=== PATIENT | female | born 1955 | race Caucasian/White ===

== ENCOUNTER 2017-11-18 13:39 | Emergency (ER) | payer OTHER ==
[~2017-11-18] VITALS: Ht 160 cm; Wt 76.7 kg
[2017-11-18 13:43] VITALS: BP 150/78; Ht 160 cm; Wt 76.7 kg
== END 2017-11-18 15:35 | disposition home or self-care (01) ==
LOC: ED 13:39
DX: S61.412A Laceration without foreign body of left hand, initial encounter (principal); E11.9 Type 2 diabetes mellitus without complications; F17.210 Nicotine dependence, cigarettes, uncomplicated; Z88.5 Allergy status to narcotic agent; W54.0XXA Bitten by dog, initial encounter; Y99.8 Other external cause status; Y93.89 Activity, other specified; Y92.89 Other specified places as the place of occurrence of the external cause
CPT/HCPCS: 90715; J2001

== ENCOUNTER 2017-11-27 10:44 | Emergency (ER) | payer OTHER ==
[~2017-11-27] VITALS: Ht 160 cm; Wt 76.7 kg
[2017-11-27 10:49] VITALS: BP 123/71; Ht 160 cm; Wt 76.7 kg
== END 2017-11-27 11:16 | disposition home or self-care (01) ==
LOC: ED 10:44
DX: S61.412D Laceration without foreign body of left hand, subsequent encounter (principal); X58.XXXD Exposure to other specified factors, subsequent encounter; Z88.5 Allergy status to narcotic agent

== ENCOUNTER 2019-08-21 13:18 | Emergency (ER) | payer OTHER ==
[~2019-08-21] VITALS: Ht 160 cm; Wt 81.9 kg
[2019-08-21 13:33] VITALS: BP 114/71; Ht 160 cm; Wt 81.9 kg
== END 2019-08-21 14:15 | disposition home or self-care (01) ==
LOC: ED 13:18
DX: N39.0 Urinary tract infection, site not specified (principal); E11.9 Type 2 diabetes mellitus without complications; Z90.710 Acquired absence of both cervix and uterus; Z88.5 Allergy status to narcotic agent

== ENCOUNTER 2019-08-24 14:16 | Emergency (ER) | payer OTHER ==
[~2019-08-24] VITALS: Ht 160 cm; Wt 82.6 kg
[2019-08-24 14:19] VITALS: Ht 160 cm; Wt 82.6 kg
[2019-08-24 15:46] VITALS: BP 131/61
== END 2019-08-24 15:46 | disposition home or self-care (01) ==
LOC: ED 14:16
DX: R51 Headache (principal); R20.2 Paresthesia of skin; E11.9 Type 2 diabetes mellitus without complications; Z88.5 Allergy status to narcotic agent
CPT/HCPCS: 82962; 99406